=== PATIENT | female | born 1950 | race Caucasian/White ===

== ENCOUNTER 2019-03-03 14:19 | Outpatient (CLI) | payer MEDICARE, OTHER ==
[2019-03-03 14:47] LABS: #Basophils 0.1 thou/uL (0.0-0.2); #Eosinphils 0.3 thou/uL (0.0-0.7); #Monocytes 0.6 thou/uL (0.11-0.59); #Neutrophils 3.8 thou/uL (1.40-6.50); %Basophils 1.6 % (0.0-1.0); %Eosinophils 4.8 % (0.0-10.0); %Lymphocytes 29.7 % (21.0-51.0); %Monocytes 8.3 % (0.0-10.0); %Neutrophils 55.6 % (42.0-75.0); Hemoglobin 13.5 g/dL (12.0-16.0); Mean Corpuscular HGB CONC 33.1 g/dL (32.0-36.0); Mean Corpuscular Hemoglobin 32.2 pg (27.0-31.0); Mean Corpuscular Volume 97.2 fL (78.0-98.0); Mean Platelet Volume 5.7 fL (7.4-10.4); Platelet Count 331 thou/uL (130-400); RBC Distribution Width 12.8 % (11.5-14.5); Red Blood Cell (RBC) Count 4.21 mill/uL (4.20-5.40); White Blood Cell (WBC) Count 6.8 thou/uL (4.8-10.8)
--- NOTE | 2019-03-03 15:34 | RAD ---
EXAM: CHEST TWO VIEWS: 03/03/19 HISTORY: Cough. COMPARISON: 04/01/12. FINDINGS: Slight elongation of the aorta. Normal cardiac silhouette. Pulmonary vessels and hilum are normal. Co stophrenic angles are clear. Hyperinflation, without consolidation or mass. No pneumothorax or acute osseous abnormalities. Chronic changes of the distal thoracic and spine are noted. Lumbar fusion hard rincon is identified and incompletely evaluated. IMPRESSION: No acute cardiopulmonary process. POS: [facility]
== END 2019-03-03 14:20 | disposition home or self-care (01) ==
LOC: SCSRAD 14:19
PROVIDERS: ATTEND Nurse Practitioner Family
DX: R05 Cough (principal); J40 Bronchitis, not specified as acute or chronic
CPT/HCPCS: 36415; 71046; 85025

== ENCOUNTER 2019-04-05 15:40 | Outpatient (CLI) | payer MEDICARE, OTHER ==
--- NOTE | 2019-04-05 16:24 | RAD ---
EXAM: 3 views of the left foot HISTORY: Foot pain COMPARISON: None FINDINGS: 3 views of the left foot shows no evidence of acute fracture or dislocation. Postsurgical c hanges are seen in the first and fifth metatarsals. No soft tissue swelling is seen. Mild first metatarsophalangeal degenerative changes are present. IMPRESSION: No evidence of acute osseous abnormality.
== END 2019-04-05 15:41 | disposition home or self-care (01) ==
LOC: SCSRAD 15:40
PROVIDERS: ATTEND Nurse Practitioner Family
DX: M79.672 Pain in left foot (principal)

== ENCOUNTER 2019-06-25 00:39 | Observation (INO) | payer MEDICARE, OTHER ==
[2019-06-25] MEDS ORDERED: Morphine 2 MG/ML SYRINGE SLOW IVP PRN (03:35)
[2019-06-25] MEDS ORDERED: Ondansetron ODT 4 MG TAB SL PRN (03:36)
[2019-06-25] MEDS ORDERED: Ondansetron PF 4 MG/2 ML Vial IVP PRN (03:36)
[2019-06-25 04:51] VITALS: BMI 26.4
[2019-06-25 07:28] VITALS: BP 116/70; TEMP 96.8
--- NOTE | 2019-06-25 09:31 | PDOC.GSCN ---
Surgery Consult: HPI - Consult details Date: 06/25/19 Time: 08:00 Reason for consult: other (Acute cholecystitis) History of present illness: 06/25/19 09:28 69yo female transferred from [facility] with abdominal pain. She complains of 1 weeks of bloating. Yesterday she experienced RUQ pain that was sharp and unrelenting. No nausea, vomiting, or change in bowel habits. She presented to the ER and was diagnosed with acute cholecystitis after CT scan and was transferred to [facility]. On interview, she reports that her symptoms were resolved as of last night in the ER. Imaging from OSH showed a distended gallbladder with possible GBW thickening. No pericholecystic fluid or CBD dilation. Laboratory analysis was grossly normal. WBC 9, TB 0,5 AP 60. 06/25/19 09:35 Surgery Consult: ROS - Review of Systems All systems: 10 systems reviewed and no additional complaints unless stated below. (endorses bloating over the last week) Surgery Consult: [facility] Past Medical History: depression, OA Past Surgical History: knee replacement - Past Family History Pertinent family history: NC - Past Social History Smoking Status: negative: Current every day smoker, Current some day smoker, Former smoker, Never smoker, Smoker, status unknown, Unknown if ever smoked, Smokes 11 or more cig/day, Smokes 0-10 cigs daily, Other Drug Use History: negative: none, cocaine, heroin, marijuana, IV drugs, amphetamines, pt denies any use, other Living Situation: independent, Surgery Consult: Exam - Vital signs Vital signs: Vital Signs - Most Recent Temp Pulse Resp BP Pulse Ox 96.8 F L 70 15 116/70 99 06/25/19 07:20 06/25/19 07:20 06/25/19 07:20 06/25/19 07:20 06/25/19 07:20 - Physical Exam General: no distress, well developed, well nourished Eye: normal ocular movement, PERRL ENT: normal mucosa Neck: no lymphadectomy, no masses, no claudia distention, trachea midline Respiratory: clear to auscultation, normal expansion, normal respiratory effort Abdomen: non tender, soft Hernia: none Integumentary: no abnormal pigmentation, no rash Neurologic: normal coordination, normal sensation Musculoskeletal: normal gait, normal posture Psychiatric: oriented to time, oriented to person, oriented to place Surgery Consult: Meds - Medications Medications: Current Medications Morphine Sulfate (Morphine) 2 mg SLOW IVP Q2H PRN PRN Reason: Severe Pain (7-10) Ondansetron HCl (Zofran) 4 mg IVP Q6H PRN PRN Reason: Nausea/Vomiting Stop: 06/25/19 13:45 Ondansetron HCl (Zofran Odt) 4 mg SL Q6H PRN PRN Reason: Nausea/Vomiting Stop: 06/25/19 13:45 - Allergies Allergies/Adverse Reactions: Allergies Allergy/AdvReac Type Severity Reaction Status Date / Time No Known Allergies Allergy Verified 06/25/19 03:54 Surgery Consult: A/P - Problem (1) Cholelithiasis Current Visit: Yes Code(s): K80.20 - CALCULUS OF GALLBLADDER W/O CHOLECYSTITIS W/O OBSTRUCTION Status: Acute - Plan Plan: Given the patient's history, exam, laboratory findings, and imaging, her complaints are likely biliary colic. Currently asymptomatic. Will provide diet. If she can tolerate without recurrence of symptoms, will plan for discharge home with outpatient follow up. Warning signs discussed with the patient.
--- NOTE | 2019-06-25 21:19 | DIS ---
DATE OF ADMISSION: 06/25/2019 DATE OF DISCHARGE: 06/25/2019 ADMISSION DIAGNOSIS: Acute cholecystitis. DISCHARGE DIAGNOSIS: Biliary colic. PROCEDURES: None. HOSPITAL COURSE: The patient presented to [facility] with complaints of 1 week of bloating. Earlier in the day, she had experienced right upper quadrant pain that was sharp and unrelenting. She underwent CT of the abdomen, which demonstrated a dilated gallbladder with possible gallbladder wall thickening. She was transferred to [facility] for surgical management. She was placed on observation overnight. The following morning, her complaints had completely resolved. After further discussion with the patient, it became evident that this was an episode of biliary colic and not acute cholecystitis. After a long discussion with the patient concerning her management options, she elected to be discharged home. DISCHARGE DISPOSITION: Home. CONDITION: Stable. DISCHARGE MEDICATIONS: None. DISCHARGE INSTRUCTIONS: 1. Follow up with General Surgery for elective evaluation. Call for an appointment, [phone]. 2. Consider presenting to the emergency department for increasing abdominal pain associated with fevers, high heart rate, or pain that does not resolve. Job ID: [id number]
== END 2019-06-25 11:10 | disposition home or self-care (01) ==
LOC: ERS 00:39 → SURG A 02:04
PROVIDERS: ADMIT Surgery; ATTEND Surgery
DX: K80.10 Calculus of gallbladder with chronic cholecystitis without obstruction (principal); F32.9 Major depressive disorder, single episode, unspecified; M19.90 Unspecified osteoarthritis, unspecified site; Z79.899 Other long term (current) drug therapy
CPT/HCPCS: 99284; G0378 ×2